=== PATIENT | male | born 1980 | race Caucasian/White ===

== ENCOUNTER 2017-02-12 11:02 | Emergency (ER) ==
[2017-02-12 11:21] VITALS: BP 139/93; TEMP 98.2; BMI 29.5
--- NOTE | 2017-02-12 11:37 | ED.PDOC ---
General ED Provider: Dr. IVA BLANCO JR Chief Complaint: Tooth Problem Stated Complaint: frequent dental problems...upper teeth have been pulled. c/ o lower toothe pain near front of mouth since last night[End] right and left," I have an abscess I'm not concerned about pain medication I have ultram" Time Seen by Physician: 11:33 Mode of Arrival: Walk-In Information Source: Patient Exam Limitations: No limitations Primary Care Provider: PENNY NEAL Nursing and Triage Documentation Reviewed and Agree: No EENT Complaint Exam - Dental/Oral Complaint/Exam Teeth Picture: 1 - black eroded with red swollen gingiva whitish plaque Differential Diagnoses: Dental Abcess, Dental Caries, Odontogenic Pain, Periodontic Disease Review of Systems - Review Of Systems Constitutional: Reports: Chills, Malaise Eyes: Reports: No symptoms Ears, Nose, Mouth, Throat: Reports: Mouth pain (lwer front teeth all eroded with gum inflammation) Respiratory: Reports: No symptoms Cardiac: Reports: No symptoms GI: Reports: No symptoms : Reports: No symptoms Musculoskeletal: Reports: No symptoms Skin: Reports: No symptoms Neurological: Reports: No symptoms Endocrine: Reports: No symptoms Hematologic/Lymphatic: Reports: No symptoms All Other Systems: Other Past Medical History - Past Medical History Previously Healthy: Yes Endocrine: Reports: None Cardiovascular: Reports: None Respiratory: Reports: Asthma Hematological: Reports: None Gastrointestinal: Reports: None Genitourinary: Reports: None Neuro/Psych: Reports: None Musculoskeletal: Reports: Back Pain Cancer: Reports: None Other Pertinent Past Medical History: gallbladder removed, T&A, HERNIAL REPAIR - Surgical History General Surgical History: Reports: Cholecystectomy, Tonsillectomy, Adenoidectomy , Hernia Repair - Family History Family History: Reports: Unknown - Social History Smoking Status: Never smoker Hx Substance Use: No Alcohol Screening: None - Immunizations Tetanus Shot up to Date: Yes Physical Exam - Physical Exam Appearance: Well-appearing Pain Distress: Moderate ENT: Ears normal, Nose normal, TMs Occluded Critical Care Note - Critical Care Note Total Time (mins): 0 Course - Course Vital Signs: Temp Pulse Resp BP Pulse Ox 02/12/17 11:14 98.2 F 85 20 139/93 H 97 Departure - Departure Time of Disposition: 11:40 Disposition: HOME SELF-CARE Discharge Problem: Toothache Instructions: Toothache (ED) Condition: Good Pt referred to PMD for follow-up: Yes Additional Instructions: clindamycin antibiotic until gone recommend consider NSAIDS for tooth pain (Advil or Aleve) follow up with dentist as soon as possible Prescriptions: Clindamycin HCl 300 mg PO QID #40 capsule Allergies/Adverse Reactions: Allergies No Known Allergies Allergy (Unverified 02/12/17 11:21) Home Medications: Ambulatory Orders Albuterol Sulfate 0.083% Neb [Albuterol 0.083% Neb] 1 applic IH PRN PRN Budesonide/Formoterol Fumarate [Symbicort 160-4.5 Mcg Inhaler] 2 puff IH BID 12/24 Clindamycin HCl 300 mg PO QID #40 capsule 02/12/17 Tramadol HCl 50 mg PO BID 02/12/17
== END 2017-02-12 11:45 | disposition home or self-care (01) ==
LOC: ED 11:02
DX: K08.89 Other specified disorders of teeth and supporting structures (principal)
CPT/HCPCS: 99282